=== PATIENT | female | born 1995 | race Caucasian/White ===

== ENCOUNTER 2017-05-23 17:50 | Emergency (ER) | payer SELFPAY ==
[~2017-05-23] VITALS: Ht 154.9 cm; Wt 42.8 kg
[~2017-05-23 17:50] MED LIST: KEFLEX500 MG PO; MOTRIN800 MG PO; NOHOMEMEDS
[2017-05-23] MEDS ORDERED: KENALOG,ARISTOC15 GM TP (18:40)
[2017-05-23] MEDS ORDERED: MYCOSTATIN15 GM PO (18:40)
[2017-05-23 19:06] VITALS: BP 107/61
== END 2017-05-23 19:07 | disposition home or self-care (01) ==
LOC: EME 17:50
DX: B37.3 Candidiasis of vulva and vagina (principal); L23.89 Allergic contact dermatitis due to other agents; R01.1 Cardiac murmur, unspecified; F17.200 Nicotine dependence, unspecified, uncomplicated; Z88.0 Allergy status to penicillin
CPT/HCPCS: 87210; 99281; 99283